=== PATIENT | male | born 1990 | race Caucasian/White ===

== ENCOUNTER → 2021-06-17 | Outpatient (CLI) | payer OTHER ==
--- NOTE | 2021-06-17 17:22 | RAD ---
XR RIBS MIN 3 VIEWS RT W/PA CHEST History: Right anterior rib pain Comparison: None. Technique: PA chest and 3 views of the right ribs. Findings: The lungs are adequately and symmectrically inflated. No airspace consolidation, pleural effusion or pneumothorax. The cardiomediastinal silhoutte and pulmonary vasculature are within normal limits. Sof t tissues and osseous structures are unremarkable. No rib fractures identified. Impression: 1. No acute cardiopulmonary process. No rib fracture or sequela. Electronically signed by: Saul Liao MD (06/17/2021 5:19 PM) [facility]
== END ==
LOC: EDBD 16:54 → RAD 16:54
PROVIDERS: ATTEND Nurse Practitioner Family
DX: R07.81 Pleurodynia (principal)
CPT/HCPCS: 71101